=== PATIENT | male | born 1940 | race Asian ===

== ENCOUNTER 2022-08-04 14:10 | Inpatient (IN) | payer BC, MEDICAID ==
[~2022-08-04] VITALS: Ht 167.6 cm; Wt 64.6 kg
[2022-08-04 14:10] VITALS: BP_SYST 142
--- NOTE | 2022-08-04 14:15 | NUR ---
Placed in room 01 . Placed on cardiac cath tech, blood pressure machine and pulse oximeter. To gown for exam. Side rails up. Report given to Xochitl HALEY .
--- NOTE | 2022-08-04 14:16 | NUR ---
RECEIVED PT FROM SUDHA KENNEDY. PT BIB DAUGHTER. DAUGHTER STATES HER DAD HAS BEEN HAVING STROKES FOR 7 DAYS NOW. PT'S AAOX4. PERRL. SYMETRIC FACE, NO HAND OR LEG DRIFT. ABLE TO COMMUNICATE NEEDS AND FOLLOW COMMANDS. DENIES H/A AND DIZZINESS. NORMAL S1S2 NOTED. RESP E/U. ON R/A. ABDOMEN SOFT, NONTENDER, NONDISTENDED. DENIES N/V/D/C. SKIN INTACT, WARM. PERIPHERAL PULSES NORMAL, NO EDEMA. DENIES PAIN. SIDERAILS UP X2.
--- NOTE | 2022-08-04 14:20 | NUR ---
Dr Kidd evaluating patient at bedside
--- NOTE | 2022-08-04 14:22 | NUR ---
# 20 gauge angiocath placed to LAC. Use of asceptic technique. Opsite placed over site. Blood return noted. Blood for lab drawn from site. Flushed with 10 cc of normal saline. No evidence of infiltration noted. Patient tolerated well.
--- NOTE | 2022-08-04 14:50 | NUR ---
PT TAKEN FOR CXR, AND CT SCAN.
[2022-08-04 14:52] LABS: BASOPHILS % (AUTO) 0.6 % (0.0-2.0); EOSINOPHILS # (AUTO) 0.2 K/uL (0.0-0.4); EOSINOPHILS % (AUTO) 3.1 % (0.0-4.0); HEMATOCRIT 35.4 % (36-54); HEMOGLOBIN 11.6 g/dL (14.0-18.0); LYMPHOCYTES % (AUTO) 15.4 % (20.5-51.5); MEAN CORPUSCULAR HEMOGLOBIN 28 pg (27-31); MEAN CORPUSCULAR HGB CONC 33 % (32-36); MEAN CORPUSCULAR VOLUME 84 fL (79.0-98.0); MONOCYTES # (AUTO) 0.5 K/uL (0.0-1.0); MONOCYTES % (AUTO) 8.7 % (1.7-9.3); NEUTROPHILS # (AUTO) 4.5 K/uL (1.8-7.7); NEUTROPHILS % (AUTO) 72.2 % (40.0-70.0); PLATELET COUNT (AUTO) 211 K/uL (130-430); RED BLOOD CELL COUNT(AUTO) 4.19 MIL/uL (4.2-6.2); RED CELL DISTRIBUTION WIDTH 14.9 % (9.0-15.0); WHITE BLOOD COUNT (AUTO) 6.2 K/uL (4.8-10.8)
[2022-08-04 14:58] LABS: ANION GAP 4 (5-15); CALCIUM 7.8 mg/dL (8.4-11.0); CHLORIDE 107 mmol/L (98-107); CREATININE 0.99 mg/dL (0.55-1.30); GLUCOSE 85 mg/dL (70-99); POTASSIUM 3.8 mmol/L (3.5-5.1); UREA NITROGEN, BLOOD 17 mg/dL (8-21)
[2022-08-04] MEDS ORDERED: NATE60TA PO (15:00)
[2022-08-04] MEDS ORDERED: MELO10CA2 PO (15:00)
[2022-08-04] MEDS ORDERED: FAMO40TA7 PO (15:00)
[2022-08-04] MEDS ORDERED: LIP20 PO (15:00)
[2022-08-04] MEDS ORDERED: LORA10TA7 PO (15:00)
[2022-08-04] MEDS ORDERED: INSU300I SQ ×2 (15:00→15:36)
[2022-08-04] MEDS ORDERED: ISO10 PO (15:00)
[2022-08-04] MEDS ORDERED: ASPI-1155 PO (15:00)
[2022-08-04] MEDS ORDERED: CALC-939 PO (15:00)
[2022-08-04] MEDS ORDERED: [UNRECOGNIZED DRUG - CODE] (15:00)
[2022-08-04] MEDS ORDERED: TAMS0.4C96 PO (15:00)
[2022-08-04] MEDS ORDERED: DOCU-144 PO (15:00)
--- NOTE | 2022-08-04 15:00 | NUR ---
Medication reconciliation completed with information provided by [facility]. Any prior medication reconciliation on file was reviewed and corrected.
[2022-08-04 15:07] LABS: ALANINE AMINOTRANSFERASE 35 U/L (12-78); ALBUMIN 3.1 g/dL (3.4-4.8); ASPARTATE AMINOTRANSFERASE 21 U/L (10-37); PHOSPHORUS 2.6 mg/dL (2.7-4.5); TOTAL BILIRUBIN 0.4 mg/dL (0.0-1.0)
--- NOTE | 2022-08-04 15:19 | NUR ---
Urine collected sent to lab. Ambulates to restroom with steady gait.
--- NOTE | 2022-08-04 15:42 | NUR ---
JORGE OBTAINED AND TAKEN TO LAB.
[2022-08-04 15:52] LABS: BILIRUBIN,URINE NEGATIVE (NEGATIVE); BLOOD, URINE NEGATIVE (NEGATIVE); CLARITY/URINE CLEAR (CLEAR); COLOR,URINE YELLOW (YELLOW); GLUCOSE,URINE NEGATIVE (NEGATIVE); KETONES,URINE NEGATIVE (NEGATIVE); LEUKOCYTE ESTERASE ,URINE NEGATIVE (NEGATIVE); NITRITE, URINE NEGATIVE (NEGATIVE); PH,URINE 7.5 (5.0-8.0); PROTEIN URINE NEGATIVE (NEGATIVE); UROBILINOGEN,URINE 0.2 (0.2-1.0)
--- NOTE | 2022-08-04 16:37 | NUR ---
Per 's request, called Nisha (on-call) for admission orders. Req. Tele bed for Seizure-like symptoms.
[2022-08-04 17:09] LABS: BARBITURATE, URINE NEGATIVE (NEG <=200); METHAMPHETAMINES SCREEN,URINE NEGATIVE (NEG <=500); URINE AMPHETAMINE NEGATIVE (NEG <=500); URINE METHADONE NEGATIVE (NEG <=200)
[2022-08-04 17:10] LABS: BENZODIAZEPINE, URINE NEGATIVE (NEG <=150); CANNABINOID, URINE NEGATIVE (NEG <=50); COCAINE, URINE NEGATIVE (NEG <=150); OPIATE, URINE NEGATIVE (NEG <=100); PHENCYCLIDINE SCREEN,URINE NEGATIVE (NEG <=25); UR TRICYCLIC ANTIDEPRESSANTS NEGATIVE (NEG <=300); URINE OXYCODONE SCREEN NEGATIVE (NEG <=100); URINE PROPOXYPHENE SCREEN NEGATIVE (NEG <=300)
--- NOTE | 2022-08-04 17:10 | NUR ---
RECEIVED ORDER FROM DR. COULTER, [facility], [facility].
--- NOTE | 2022-08-04 17:25 | NUR ---
PT AND PT'S MADE AWARE PT WILL ADMIT WITH DX OF NEUROPATHY. PT AGREED WITH POC.
--- NOTE | 2022-08-04 17:47 | NUR ---
Gave pt. [facility] meal tray. Pt. self-feeding.
--- NOTE | 2022-08-04 19:22 | NUR ---
ENDORSED PT TO SUDHA PLASCENCIA. ALL QUESTIONS AND CONCERNS ADDRESSED.
--- NOTE | 2022-08-04 19:45 | NUR ---
ADMISSION NOTE Received patient from ER via gurney. Patient admitted with diagnosis of neuropathy. Patient is awake, alert, oriented X 4. Patient oriented to hospital room, call light, toileting, pain management and safety-teach back done. Patient informed that their room number is 134a. Personal belongings checked and Belongings List documented. Call light within reach.
[2022-08-04 19:56] VITALS: BP_SYST 141
[2022-08-04 20:00] VITALS: BP_SYST 140
--- NOTE | 2022-08-04 20:00 | NUR ---
OPENING NOTE PT ADMITTED FROM ER. INTAKE COMPLETED BY SUDHA GARCIA PT IS LYING IN BED WITH EYES OPEN. PT UNDERSTANDS VERY LITTLE [place]. NO APPARENT DISTRESS NOTED AT THIS TIME. BED IS IN LOWEST POSITION WITH SAFETY PRECAUTIONS IN PLACE. CALL LIGHT IS WITHIN REACH, PT EDUCATED ON HOW TO USE IT
--- NOTE | 2022-08-04 21:50 | NUR ---
CONSULTATION CALLED FOR DR. Scotty HUBER IS TETRYL SCREEN OPERATOR FOR CONSULT OF NEUROPATHY SPOKE WITH ALEJANDRO Addendum: 08/04/22 at 2157 by Luis Hart CNA ORDER BY DR. Cristian BETHEA
[2022-08-04] MEDS ORDERED: NALOXONE HCL 0.4 MG/ML AMP (NARCAN) IVP PRN ×2 (22:30)
[2022-08-04] MEDS ORDERED: DEXTROSE 50% JECT 50 ML DISP.SYRIN IVP PRN (22:30)
[2022-08-04] MEDS ORDERED: HYDROcodone/ACETAMIN 10-325 MG TAB PO PRN (22:30)
[2022-08-04] MEDS ORDERED: D5W 1,000 ML IV PRN (22:30)
[2022-08-04] MEDS ORDERED: GLUCOSE (DEXTROSE) ORAL GEL -Adults PO PRN (22:30)
[2022-08-04] MEDS ORDERED: ONDANSETRON HCL 4 MG/2 ML VIAL IVP PRN (22:30)
[2022-08-04] MEDS ORDERED: LORazepam 2 MG/ML VIAL IVP PRN (22:30)
[2022-08-04] MEDS ORDERED: HYDROcodone/ACETAMIN 5-325 MG TAB (NORCO/ VICODIN) PO PRN (22:30)
[2022-08-04] MEDS ORDERED: ACETAMINOPHEN 325 MG TABLET PO PRN (22:30)
--- NOTE | 2022-08-05 03:40 | NUR ---
ROUNDS PT IS LYING IN BED WITH EYES CLOSED. NO APPARENT SIGNS OF DISTRESS NOTED AT THIS TIME. CALL LIGHT WITHIN REACH
[2022-08-05] MEDS ORDERED: NORMAL SALINE 5 ML DISP.SYRIN IVF SCH ×2 (06:00)
--- NOTE | 2022-08-05 07:27 | NUR ---
PATIENT ADMITTED AND TRANSFERRED TO THE FLOOR AT 0230, V/S
[2022-08-05 08:00] VITALS: BP_SYST 153
--- NOTE | 2022-08-05 08:00 | NUR ---
Received patient in bed aao x4, vital signs within normal limits, denies pain, meds given as ordered, in no acute distress, call light placed to reach, will continue to monitor.
[2022-08-05] MEDS ORDERED: ATORVASTATIN 20 MG TABLET PO SCH ×2 (09:00→21:00)
[2022-08-05] MEDS: ASPIRIN 81 MG TAB.CHEW PO SCH (10:22)
[2022-08-05] MEDS: DOCUSATE SODIUM 100 MG CAPSULE PO SCH ×2 (10:22→22:25)
[2022-08-05] MEDS: LORATADINE 10 MG TABLET PO SCH (10:22)
[2022-08-05] MEDS: TAMSULOSIN HCL 0.4 MG CAP PO SCH (10:22)
[2022-08-05] MEDS: ISOSORBIDE DINITRATE 10 MG TABLET (ISORDIL) PO SCH (10:25)
[2022-08-05] MEDS: CALCIUM CARBONATE/VITAMIN D3 1 TAB TABLET PO SCH ×2 (10:26→22:25)
[2022-08-05] MEDS: MELOXICAM 7.5 MG TABLET PO SCH (10:26)
[2022-08-05] MEDS: NATEGLINIDE 120 MG TABLET PO SCH ×2 (10:26→22:25)
[2022-08-05] MEDS: FAMOTIDINE 20 MG TABLET PO SCH (10:26)
[2022-08-05 12:00] VITALS: BP_SYST 110
--- NOTE | 2022-08-05 12:00 | NUR ---
Patient in bed resting well, in no acute distress, able to make needs known, call light noted within reach.
--- NOTE | 2022-08-05 16:00 | NUR ---
Patient in bed asleep, in no acute distress, patient appear comfortable. RN will continue to monitor.
[2022-08-05 16:17] VITALS: BP_SYST 125
--- NOTE | 2022-08-05 19:35 | NUR ---
OPENING NOTE PT IS LYING IN BED WITH EYES OPEN. PT UNDERSTANDS VERY LITTLE [place]. NO APPARENT DISTRESS NOTED AT THIS TIME. BED IS IN LOWEST POSITION WITH SAFETY PRECAUTIONS IN PLACE. CALL LIGHT IS WITHIN REACH, PT EDUCATED ON HOW TO USE IT
[2022-08-05 20:00] VITALS: BP_SYST 131
[2022-08-05] MEDS ORDERED: INSULIN GLARGINE 100 UNITS/ML, 10 ML VIAL SUBCUT SCH (21:00)
--- NOTE | 2022-08-06 | NUR ---
ROUNDS PT IS LYING IN BED WITH EYES CLOSED. NO APPARENT SIGNS OF DISTRESS NOTED AT THIS TIME. CALL LIGHT WITHIN REACH
[2022-08-06 01:36] VITALS: BP_SYST 141
--- NOTE | 2022-08-06 04:00 | NUR ---
ROUNDS PT IS LYING IN BED WITH EYES CLOSED. NO APPARENT SIGNS OF DISTRESS NOTED AT THIS TIME. CALL LIGHT WITHIN REACH
[2022-08-06 07:00] LABS: BASOPHILS % (AUTO) 0.3 % (0.0-2.0); EOSINOPHILS # (AUTO) 0.3 K/uL (0.0-0.4); EOSINOPHILS % (AUTO) 5.3 % (0.0-4.0); HEMATOCRIT 36.3 % (36-54); HEMOGLOBIN 12.1 g/dL (14.0-18.0); LYMPHOCYTES % (AUTO) 17.3 % (20.5-51.5); MEAN CORPUSCULAR HEMOGLOBIN 28 pg (27-31); MEAN CORPUSCULAR HGB CONC 34 % (32-36); MEAN CORPUSCULAR VOLUME 84 fL (79.0-98.0); MONOCYTES # (AUTO) 0.5 K/uL (0.0-1.0); MONOCYTES % (AUTO) 9.3 % (1.7-9.3); NEUTROPHILS # (AUTO) 3.8 K/uL (1.8-7.7); NEUTROPHILS % (AUTO) 67.8 % (40.0-70.0); PLATELET COUNT (AUTO) 215 K/uL (130-430); RED CELL DISTRIBUTION WIDTH 14.2 % (9.0-15.0); WHITE BLOOD COUNT (AUTO) 5.6 K/uL (4.8-10.8)
[2022-08-06 07:10] LABS: ALANINE AMINOTRANSFERASE 29 U/L (12-78); ALBUMIN 3.1 g/dL (3.4-4.8); ANION GAP 6 (5-15); ASPARTATE AMINOTRANSFERASE 20 U/L (10-37); CALCIUM 8.4 mg/dL (8.4-11.0); CHLORIDE 108 mmol/L (98-107); CREATININE 1.14 mg/dL (0.55-1.30); GLUCOSE 57 mg/dL (70-99); POTASSIUM 3.6 mmol/L (3.5-5.1); TOTAL BILIRUBIN 0.8 mg/dL (0.0-1.0); UREA NITROGEN, BLOOD 20 mg/dL (8-21)
--- NOTE | 2022-08-06 07:37 | NUR ---
CLOSING NOTE PT IS SIDE LYING IN BED. NO APPARENT SIGNS OF DISTRESS NOTED AT THIS TIME. BED IS IN LOWEST POSITION WITH SAFETY PRECAUTIONS IN PLACE. CALL LIGHT WITHIN REACH
[2022-08-06 08:00] VITALS: BP_SYST 148
[2022-08-06] MEDS: MELOXICAM 7.5 MG TABLET PO SCH (09:04)
[2022-08-06] MEDS: DOCUSATE SODIUM 100 MG CAPSULE PO SCH (09:04)
[2022-08-06] MEDS: FAMOTIDINE 20 MG TABLET PO SCH (09:04)
[2022-08-06] MEDS: ASPIRIN 81 MG TAB.CHEW PO SCH (09:04)
[2022-08-06] MEDS: CALCIUM CARBONATE/VITAMIN D3 1 TAB TABLET PO SCH (09:04)
[2022-08-06] MEDS: NATEGLINIDE 120 MG TABLET PO SCH (09:05)
[2022-08-06] MEDS: ISOSORBIDE DINITRATE 10 MG TABLET (ISORDIL) PO SCH (09:05)
[2022-08-06] MEDS: TAMSULOSIN HCL 0.4 MG CAP PO SCH (09:05)
[2022-08-06] MEDS: LORATADINE 10 MG TABLET PO SCH (09:05)
--- NOTE | 2022-08-06 09:23 | NUR ---
receive the patient from mary the resource nurse . with admitting diagnosis of neuropathy aox4 in a stable condition . no compof pain at this time . no sign and symptoms of respiratory distress . will continue to monitor .
[2022-08-06 12:37] VITALS: BP_SYST 116
--- NOTE | 2022-08-06 15:30 | NUR ---
md Palma made order fpr discharge home f/u with primary md in a week . also consult also diabetic neuropathy as out patient . discharge patient teaching was done
[2022-08-06 15:38] VITALS: BP_SYST 148
--- NOTE | 2022-08-06 18:34 | NUR ---
picker feeder by the daughter . made some discharge patient teaching with the daughter to see the primary md in a week . consult also to a diabetic neuropathy wasl also recommended by md sanchez
== END 2022-08-06 18:05 | disposition home or self-care (01) | DRG 74 ==
LOC: SED 14:10 → SMU 16:49
PROVIDERS: ADMIT Specialist; ATTEND Specialist
DX: E11.42 Type 2 diabetes mellitus with diabetic polyneuropathy (principal); M54.16 Radiculopathy, lumbar region; M85.88 Other specified disorders of bone density and structure, other site; D64.9 Anemia, unspecified; E83.52 Hypercalcemia; Z20.822 Contact with and (suspected) exposure to COVID-19; E78.5 Hyperlipidemia, unspecified; E83.39 Other disorders of phosphorus metabolism; E88.09 Other disorders of plasma-protein metabolism, not elsewhere classified; I10 Essential (primary) hypertension; N40.0 Benign prostatic hyperplasia without lower urinary tract symptoms; Z79.899 Other long term (current) drug therapy
CPT/HCPCS: 36415; 70450-TC; 71045; 72131; 76376; 80053; 80307; 82962; 83735; 84100; 84484; 85025; 99285